=== PATIENT | male | born 1965 | race Caucasian/White ===

== ENCOUNTER 2022-02-07 07:51 | Emergency (ER) | payer OTHER ==
[2022-02-07 08:02] VITALS: BP 158/104; PULSE 91; RESP 16; TEMP 99.5; BMI 34.4
== END 2022-02-07 08:41 | disposition home or self-care (01) ==
LOC: FER 07:51
DX: S43.422A Sprain of left rotator cuff capsule, initial encounter (principal); M25.512 Pain in left shoulder; X50.0XXA Overexertion from strenuous movement or load, initial encounter
CPT/HCPCS: 99281-25